=== PATIENT | male | born 1990 | race Two or more races ===

== ENCOUNTER 2017-10-23 23:39 | Emergency (ER) | payer OTHER ==
[~2017-10-23] VITALS: Ht 165.1 cm; Wt 95.3 kg
[2017-10-23 23:45] VITALS: BP 146/78
--- NOTE | 2017-10-23 23:45 | NUR ---
BBRA FOR O.K. TO BOOK. PT STATES ABD PAIN NONE RADIATING. PT IS AAOX4. PT IS IN CUSTODY, POLICE BEDSIDE WITH PT. PT RESP EVEN AND UNLABORED. SKIN WNL. NO S/S OF ACUTE DISTRESS NOTED. PT SAFETY AND COMFORT MEASURES IN PLACE. AWAITING MD FOR EVAL.
--- NOTE | 2017-10-24 00:19 | NUR ---
Patient discharged to police officers in custody in stable condition. Written and verbal after care instructions given. Patient verbalizes understanding of instruction. VSS upon discharge. Pt ambulated with steady gait out of ER accompanied by police officers.
== END 2017-10-24 00:23 ==
LOC: ER 23:43
DX: G43.D0 Abdominal migraine, not intractable (principal)
CPT/HCPCS: A4606; Z7610

== ENCOUNTER 2021-05-28 00:57 | Emergency (ER) | payer OTHER ==
[~2021-05-28] VITALS: Ht 167.6 cm; Wt 99.8 kg
[2021-05-28 01:09] VITALS: BP 141/80
[2021-05-28] MEDS ORDERED: IBUPROFEN 400 MG TABLET ONE (01:19)
[2021-05-28] MEDS ORDERED: IBUPROFEN 400 MG TABLET PO ONE (01:30)
== END 2021-05-28 01:27 | disposition home or self-care (01) ==
LOC: ER 00:59
DX: S83.8X1A Sprain of other specified parts of right knee, initial encounter (principal); M62.830 Muscle spasm of back; Z76.5 Malingerer [conscious simulation]; W01.0XXA Fall on same level from slipping, tripping and stumbling without subsequent striking against object, initial encounter; Y93.89 Activity, other specified; Y92.89 Other specified places as the place of occurrence of the external cause; Y99.8 Other external cause status

== ENCOUNTER 2021-09-12 06:02 | Emergency (ER) | payer OTHER ==
[~2021-09-12] VITALS: Ht 165.1 cm; Wt 97.5 kg
--- NOTE | 2021-09-12 06:10 | NUR ---
BIBRA 102 C/O RECTAL PAIN AND ASTHMA ATTACK GIVEN 5 mg albuterol FLAME HARDENER. PT A/OX4. TOLERATING R/A WELL AT 96%. CONNECTED PT TO POX AND MONITOR. SAFETY MEASURES IN PLACE
[2021-09-12] MEDS ORDERED: IBUPROFEN 600 MG TABLET PO ONE (06:30)
[2021-09-12] MEDS ORDERED: ALBUTEROL FS 2.5 MG/3 ML VIAL.NEB NEB ONE (06:30)
[2021-09-12] MEDS ORDERED: predniSONE 50 MG TABLET PO ONE (06:30)
[2021-09-12] MEDS ORDERED: IPRATROPIUM NEB FS 0.5 MG/2.5 ML AMPUL.NEB NEB ONE (06:30)
[2021-09-12] MEDS ORDERED: predniSONE 20 MG TABLET ONE (06:32)
[2021-09-12] MEDS ORDERED: IBUPROFEN 600 MG TABLET ONE (06:32)
--- NOTE | 2021-09-12 06:38 | NUR ---
CALLED RT FOR BREATHING TX
--- NOTE | 2021-09-12 06:40 | NUR ---
PT TAKEN TO CT VIA RENA
--- NOTE | 2021-09-12 06:49 | NUR ---
PT RETURNED TO ER BED 14 VIA RENA
[2021-09-12] MEDS ORDERED: IPRATROPIUM NEB FS 0.5 MG/2.5 ML AMPUL.NEB ONE (06:59)
[2021-09-12] MEDS ORDERED: ALBUTEROL FS 2.5 MG/3 ML VIAL.NEB ONE (06:59)
[2021-09-12] MEDS ORDERED: IBUP-1955 PO (08:07)
[2021-09-12] MEDS ORDERED: PRED20TA PO (08:07)
[2021-09-12] MEDS ORDERED: ALBU8.5H8 INH (08:07)
--- NOTE | 2021-09-12 09:06 | NUR ---
Patient discharged to home in stable condition. Written and verbal after care instructions given. Patient verbalizes understanding of instruction. Patients mom is transporting patient home.
[2021-09-12 09:07] VITALS: BP 155/89
== END 2021-09-12 09:08 | disposition home or self-care (01) ==
LOC: ER 06:10
DX: S30.0XXA Contusion of lower back and pelvis, initial encounter (principal); J45.901 Unspecified asthma with (acute) exacerbation; F17.200 Nicotine dependence, unspecified, uncomplicated; Z60.2 Problems related to living alone; Y08.89XA Assault by other specified means, initial encounter; Y93.89 Activity, other specified; Y92.89 Other specified places as the place of occurrence of the external cause; Y99.8 Other external cause status
CPT/HCPCS: 72131; 94640 ×2; 99285; J7512

== ENCOUNTER 2023-01-16 09:15 | Emergency (ER) | payer OTHER ==
[~2023-01-16] VITALS: Ht 167.6 cm; Wt 111.1 kg
[~2023-01-16 09:15] MED LIST: ALBU8.5H8 INH; IBUP-1955 PO; PRED20TA PO
[2023-01-16 09:21] VITALS: BP 138/81
--- NOTE | 2023-01-16 09:21 | NUR ---
REQUESTING MED REFILL. "GABBAPENTIN FOR MY NEUROPATHY". NO OTHER MEDICAL COMPLAINTS.
--- NOTE | 2023-01-16 09:23 | NUR ---
AT BEDSIDE FOR EVAL
[2023-01-16] MEDS ORDERED: GABA-532 PO (09:36)
--- NOTE | 2023-01-16 09:45 | NUR ---
Patient discharged to home in stable condition. Written and verbal after care instructions given. Patient verbalizes understanding of instruction.
== END 2023-01-16 09:47 | disposition home or self-care (01) ==
LOC: ER 09:16
DX: G89.29 Other chronic pain (principal); E11.65 Type 2 diabetes mellitus with hyperglycemia; E11.40 Type 2 diabetes mellitus with diabetic neuropathy, unspecified; F17.200 Nicotine dependence, unspecified, uncomplicated; Z60.2 Problems related to living alone
CPT/HCPCS: 82962-TC